=== PATIENT | female | born 1995 | race Caucasian/White ===

== ENCOUNTER 2018-12-05 22:03 | Emergency (ER) | payer BC ==
[~2018-12-05] VITALS: Ht 162.6 cm; Wt 63.5 kg
--- NOTE | 2018-12-05 22:34 | NUR ---
PT IS LEAVING FOR XRAY VIA .
--- NOTE | 2018-12-05 22:43 | NUR ---
PT RETURNED FROM RADIOLOGY
[2018-12-05] MEDS ORDERED: KETOROLAC TROMETHAMINE INJ 60 MG/2 ML VIAL IM ONE (23:30)
[2018-12-06] VITALS: BP 128/85
== END 2018-12-06 00:01 | disposition home or self-care (01) ==
LOC: ER 22:17
DX: R07.81 Pleurodynia (principal); J45.909 Unspecified asthma, uncomplicated; F32.9 Major depressive disorder, single episode, unspecified; F41.9 Anxiety disorder, unspecified
CPT/HCPCS: 71100; 99283; A4606